=== PATIENT | female | born 1930 | race Hispanic/Latino ===

== ENCOUNTER 2021-06-17 18:20 | Inpatient (IN) | payer MEDICARE ==
[~2021-06-17] VITALS: Ht 152.4 cm; Wt 50.6 kg
[~2021-06-17 18:20] MED LIST: AMLO-73 PO; ATEN50TA PO; ESOM40CA PO; FERR-82 PO; FURO20TA4 PO; LINA5TAB PO; SIMV40TA59 PO; TRAM50TA4 PO
[2021-06-17 19:22] LABS: BASOPHILS % (AUTO) 0.2 % (0.0-5.0); EOSINOPHILS % (AUTO) 1.6 % (0.0-8.0); HEMATOCRIT 26.5 % (36-48); MEAN CORPUSCULAR HEMOGLOBIN 32.4 pg (27.0-33.0); MEAN CORPUSCULAR HGB CONC 33.6 g/dL (32.0-36.0); MEAN CORPUSCULAR VOLUME 96.4 fL (79-99); MONOCYTES % (AUTO) 2.5 % (3.0-13.0); NEUTROPHILS % (AUTO) 92.2 % (40.0-77.0); PLATELET COUNT (AUTO) 165 K/uL (130-400); RED BLOOD CELL COUNT(AUTO) 2.75 MIL/uL (4.00-5.50); RED CELL DISTRIBUTION WIDTH 13.2 % (11.0-15.5); WHITE BLOOD COUNT (AUTO) 13.8 K/uL (4.8-10.8)
[2021-06-17] MEDS ORDERED: 0.9%NACL 1000ML 1,000 ML IV ONE ×2 (19:30→20:21)
[2021-06-17] MEDS ORDERED: ACETAMINOPHEN 500 MG TABLET PO ONE (19:30)
[2021-06-17 19:41] LABS: ALANINE AMINOTRANSFERASE 29 U/L (12-78); ASPARTATE AMINOTRANSFERASE 33 U/L (10-37); BILIRUBIN,TOTAL 0.3 mg/dL (0.2-1.0); CARBON DIOXIDE 20 mmol/L (21-32); CHLORIDE 104 mmol/L (101-111); CREATININE 2.4 mg/dL (0.5-1.5); GLOMERULAR FILTR. RATE CALC 20 mL/min (>60); GLUCOSE,RANDOM 178 mg/dL (70-105); POTASSIUM 5.9 mmol/L (3.5-5.1); SODIUM SERUM 137 mmol/L (136-145); TOTAL PROTEIN, SERUM 7.1 g/dL (6.0-8.3)
[2021-06-17 19:44] LABS: CRP QUANTITATIVE < 2.00 mg/L (0.00-9.0)
[2021-06-17 19:45] LABS: UREA NITROGEN, BLOOD 86 mg/dL (7-18)
[2021-06-17 19:46] LABS: B-TYPE NATRIURETIC PEPTIDE 730 pg/mL (0-100)
[2021-06-17] MEDS ORDERED: ZOSYN 3.375GM+NS 50ML 50 ML ONE (20:48)
[2021-06-17] MEDS ORDERED: ZOSYN 3.375GM +NS 50ML IV SCH (21:00)
[2021-06-17] MEDS ORDERED: ZOSYN 3.375GM+NS 50ML 3.38 GM in 0.9%NACL 50ML 50 ML IV SCH (21:00)
[2021-06-17 21:26] LABS: APPEARANCE,URINE Clear (CLEAR); BILIRUBIN,URINE Negative (NEGATIVE); COLOR,URINE Yellow (YELLOW); GLUCOSE, URINE (UA) Negative (NEGATIVE); KETONES,URINE Negative (NEGATIVE); LEUKOCYTE ESTERASE ,URINE Negative (NEGATIVE); NITRATE,URINE Negative (NEGATIVE); OCCULT BLOOD,URINE Negative (NEGATIVE); PROTEIN,URINE POS 2+ mg/dL (NEGATIVE); UROBILINOGEN,URINE 0.2 mg/dL (0.2-1.0)
[2021-06-17 21:39] LABS: BACTERIA,URINE None Seen /HPF (None Seen); MUCUS,URINE Few LPF (None Seen); RBC,URINE 0-1 /HPF (0-1); SQUAMOUS EPITHELIAL CELL,UR 0-2 /HPF (0-2); WBC,URINE 0-1 /HPF (0-1)
[2021-06-17] MEDS ORDERED: HYDRALAZINE 20MG/ML VIAL IV PRN (22:00)
[2021-06-17] MEDS ORDERED: MORPHINE 4 MG SYG IV PRN (22:00)
[2021-06-17] MEDS ORDERED: ONDANSETRON 4MG INJ IV PRN (22:00)
[2021-06-17] MEDS: ZOSYN 3.375GM+NS 50ML 50 ML IV SCH (22:00)
[2021-06-17] MEDS ORDERED: ACETAMINOPHEN 325 MG TAB PO PRN (22:00)
[2021-06-17] MEDS ORDERED: LACTATED RINGERS IV ONE (22:00)
[2021-06-17] MEDS: LACTATED RINGERS 1000ML 1,000 ML IV SCH (23:01)
[2021-06-18 01:02] LABS: BASOPHILS % (AUTO) 0.1 % (0.0-5.0); LYMPHOCYTES % (AUTO) 1.9 % (21.0-51.0); MEAN CORPUSCULAR HEMOGLOBIN 32.8 pg (27.0-33.0); MEAN CORPUSCULAR HGB CONC 33.5 g/dL (32.0-36.0); MEAN CORPUSCULAR VOLUME 97.9 fL (79-99); MONOCYTES % (AUTO) 7.8 % (3.0-13.0); NEUTROPHILS % (AUTO) 89.4 % (40.0-77.0); PLATELET COUNT (AUTO) 145 K/uL (130-400); RED BLOOD CELL COUNT(AUTO) 2.35 MIL/uL (4.00-5.50); RED CELL DISTRIBUTION WIDTH 13.2 % (11.0-15.5); WHITE BLOOD COUNT (AUTO) 15.7 K/uL (4.8-10.8)
[2021-06-18] MEDS: INSULIN HUMULIN R 100 UNIT/ML 3ML SQ SCH ×4 (07:30→21:00)
[2021-06-18 07:37] LABS: HEMOGLOBIN A1C 5.4 % (4.0-6.0); INR 1.07 (0.85-1.15); PROTHROMBIN TIME 11.6 SEC (9.6-11.6)
[2021-06-18 07:39] LABS: PARTIAL THROMBOPLASTIN TIME 32.1 SEC (26.3-35.5)
[2021-06-18 07:40] LABS: CREATININE 2.3 mg/dL (0.5-1.5); MAGNESIUM 2.6 mg/dL (1.80-2.40); PHOSPHORUS 4.1 mg/dL (2.5-4.9); POTASSIUM 5.3 mmol/L (3.5-5.1)
[2021-06-18] MEDS: ZOSYN 3.375GM+NS 50ML 50 ML IV SCH ×2 (10:00→21:28)
[2021-06-18] MEDS: HEPARIN 5,000 UNIT VIAL SQ SCH ×3 (10:01→21:36)
[2021-06-18] MEDS: ASPIRIN 81 MG EC TAB PO SCH (10:01)
[2021-06-18] MEDS: FAMOTIDINE 20MG VIAL IV SCH (10:01)
[2021-06-18] MEDS: LACTATED RINGERS 1000ML 1,000 ML IV SCH (17:29)
[2021-06-18] MEDS ORDERED: CALC-190 PO (19:25)
[2021-06-18] MEDS ORDERED: AEC81 PO (19:25)
[2021-06-18 20:00] VITALS: BP 172/61
[2021-06-18] MEDS: AMLODIPINE-BENAZEPRIL 5-10 MG PO SCH (23:36)
[2021-06-18] MEDS: ACETAMINOPHEN WITH CODEINE 1 TAB TAB PO PRN (23:57)
[2021-06-19] VITALS: BP 143/53
[2021-06-19 04:00] VITALS: BP 139/55
[2021-06-19] MEDS: INSULIN HUMULIN R 100 UNIT/ML 3ML SQ SCH ×4 (07:30→21:41)
[2021-06-19 07:55] VITALS: BP 163/61
[2021-06-19] MEDS ORDERED: AMLODIPINE-BENAZEPRIL 5-10 MG PO SCH (09:00)
[2021-06-19] MEDS: AMLODIPINE-BENAZEPRIL 5-10 MG PO SCH (09:00)
[2021-06-19] MEDS: FAMOTIDINE 20MG VIAL IV SCH (09:00)
[2021-06-19] MEDS: ZOSYN 3.375GM+NS 50ML 50 ML IV SCH (09:00)
[2021-06-19] MEDS: ASPIRIN 81 MG EC TAB PO SCH (09:00)
[2021-06-19] MEDS: HEPARIN 5,000 UNIT VIAL SQ SCH ×3 (09:13→21:40)
[2021-06-19 11:34] VITALS: BP 155/56
[2021-06-19] MEDS: MEROPENEM 500 MG VIAL IVP SCH ×2 (13:14→21:32)
[2021-06-19] MEDS: LACTATED RINGERS 1000ML 1,000 ML IV SCH (14:00)
[2021-06-19 15:46] VITALS: BP 166/55
[2021-06-19] MEDS: ACETAMINOPHEN WITH CODEINE 1 TAB TAB PO PRN (16:32)
[2021-06-19] MEDS: PNEUMOCOCCAL VACCINE POLYVALENT 0.5 ML/VIAL [PPV] IM SCH (17:35)
[2021-06-19 19:00] VITALS: BP 165/65
[2021-06-19 19:19] LABS: BASOPHILS % (AUTO) 0.2 % (0.0-5.0); HEMATOCRIT 24.1 % (36-48); LYMPHOCYTES % (AUTO) 2.9 % (21.0-51.0); MONOCYTES % (AUTO) 3.1 % (3.0-13.0); NEUTROPHILS % (AUTO) 93.3 % (40.0-77.0); PLATELET COUNT (AUTO) 143 K/uL (130-400); RED BLOOD CELL COUNT(AUTO) 2.41 MIL/uL (4.00-5.50); RED CELL DISTRIBUTION WIDTH 13.7 % (11.0-15.5); WHITE BLOOD COUNT (AUTO) 14.9 K/uL (4.8-10.8)
[2021-06-19] MEDS ORDERED: EPOETIN ALFA-EPBX (NON-ESRD) 10,000 UNIT/ML VIAL SQ SCH (19:30)
[2021-06-19] MEDS ORDERED: IRON SUCROSE COMPLEX 300 MG in 0.9%NACL 50ML 50 ML IV SCH (19:30)
[2021-06-19] MEDS ORDERED: COMPOUND IV MISC 1 EACH IVSOLN MISC PRN (19:30)
[2021-06-19 20:05] LABS: ALBUMIN 2.9 g/dL (3.5-5.0); BILIRUBIN,TOTAL 0.4 mg/dL (0.2-1.0); CREATININE 2.7 mg/dL (0.5-1.5); CRP QUANTITATIVE 83.7 mg/L (0.00-9.0); POTASSIUM 5.7 mmol/L (3.5-5.1); THYROID STIMULATING HORMONE 1.22 uIU/mL (0.36-3.74); TOTAL PROTEIN, SERUM 6.3 g/dL (6.0-8.3)
[2021-06-19 20:15] LABS: % IRON SATURATION 8.7 % (22-44)
[2021-06-20] VITALS: BP 135/57
[2021-06-20 03:28] VITALS: BP 160/57
[2021-06-20 05:21] LABS: BASOPHILS % (AUTO) 0.2 % (0.0-5.0); EOSINOPHILS % (AUTO) 0.1 % (0.0-8.0); HEMATOCRIT 22.8 % (36-48); LYMPHOCYTES % (AUTO) 6.9 % (21.0-51.0); MEAN CORPUSCULAR HEMOGLOBIN 32.1 pg (27.0-33.0); MEAN CORPUSCULAR HGB CONC 33.3 g/dL (32.0-36.0); MEAN CORPUSCULAR VOLUME 96.2 fL (79-99); MONOCYTES % (AUTO) 4.1 % (3.0-13.0); PLATELET COUNT (AUTO) 145 K/uL (130-400); RED BLOOD CELL COUNT(AUTO) 2.37 MIL/uL (4.00-5.50); RED CELL DISTRIBUTION WIDTH 13.9 % (11.0-15.5); WHITE BLOOD COUNT (AUTO) 12.5 K/uL (4.8-10.8)
[2021-06-20 05:38] LABS: ALBUMIN 2.7 g/dL (3.5-5.0); BILIRUBIN,TOTAL 0.3 mg/dL (0.2-1.0); CREATININE 2.7 mg/dL (0.5-1.5); CRP QUANTITATIVE 72.6 mg/L (0.00-9.0); PHOSPHORUS 4.5 mg/dL (2.5-4.9); POTASSIUM 5.6 mmol/L (3.5-5.1); TOTAL PROTEIN, SERUM 5.7 g/dL (6.0-8.3)
[2021-06-20] MEDS: INSULIN HUMULIN R 100 UNIT/ML 3ML SQ SCH ×4 (07:30→21:00)
[2021-06-20 08:00] VITALS: BP 164/62
[2021-06-20] MEDS: AMLODIPINE-BENAZEPRIL 5-10 MG PO SCH (08:42)
[2021-06-20] MEDS: ASPIRIN 81 MG EC TAB PO SCH (08:42)
[2021-06-20] MEDS: FAMOTIDINE 20MG VIAL IV SCH (08:42)
[2021-06-20] MEDS: HEPARIN 5,000 UNIT VIAL SQ SCH (08:43)
[2021-06-20] MEDS: PNEUMOCOCCAL VACCINE POLYVALENT 0.5 ML/VIAL [PPV] IM SCH (08:44)
[2021-06-20] MEDS: MEROPENEM 500 MG VIAL IVP SCH ×2 (11:46→21:22)
[2021-06-20 11:51] VITALS: BP 163/61
[2021-06-20] MEDS ORDERED: 0.9%NACL 1000ML 1,000 ML IV SCH (12:00)
[2021-06-20] MEDS ORDERED: EPOETIN ALFA-EPBX (NON-ESRD) 10,000 UNIT/ML VIAL SQ SCH (12:00)
[2021-06-20] MEDS ORDERED: IRON SUCROSE COMPLEX 300 MG in 0.9%NACL 50ML 50 ML IV SCH (12:00)
[2021-06-20] MEDS ORDERED: FUROSEMIDE 40MG VIAL IV ONE ×2 (13:30→22:30)
[2021-06-20 16:00] VITALS: BP 160/60
[2021-06-20] MEDS: HYDRALAZINE 25MG TABLET PO SCH ×2 (16:29→21:22)
[2021-06-20] MEDS ORDERED: NA ZIRCON CYCLOSIL(LOKELMA 10GM) PO ONE (17:30)
[2021-06-20 19:00] VITALS: BP 160/75
[2021-06-20] MEDS: AMLODIPINE 5 MG TAB PO SCH (21:22)
[2021-06-20] MEDS: METOPROLOL TARTRATE 25 MG TAB PO SCH (21:22)
[2021-06-21] VITALS: BP 166/77
[2021-06-21] MEDS: ACETAMINOPHEN WITH CODEINE 1 TAB TAB PO PRN (00:05)
[2021-06-21 00:37] LABS: ABG BASE EXCESS -4.9 mmol/L (-2.0-3.0); ABG HCO3 18.2 mmol/L (21.0-28.0); ABG OXYGEN SATURATION 83.9 % (95.0-99.0); ABG PCO2 29 mmHg (32-45)
[2021-06-21 04:00] VITALS: BP 156/67
[2021-06-21 04:34] LABS: HEMATOCRIT 23.7 % (36-48); MEAN CORPUSCULAR HEMOGLOBIN 31.1 pg (27.0-33.0); MEAN CORPUSCULAR HGB CONC 32.1 g/dL (32.0-36.0); MEAN CORPUSCULAR VOLUME 97.1 fL (79-99); RED BLOOD CELL COUNT(AUTO) 2.44 MIL/uL (4.00-5.50); RED CELL DISTRIBUTION WIDTH 13.8 % (11.0-15.5); WHITE BLOOD COUNT (AUTO) 15.8 K/uL (4.8-10.8)
[2021-06-21 04:55] LABS: ALBUMIN 2.8 g/dL (3.5-5.0); CREATININE 3.3 mg/dL (0.5-1.5); PHOSPHORUS 5.7 mg/dL (2.5-4.9); POTASSIUM 5.6 mmol/L (3.5-5.1)
[2021-06-21] MEDS: INSULIN HUMULIN R 100 UNIT/ML 3ML SQ SCH ×4 (06:00→22:05)
[2021-06-21 06:34] LABS: ABG HCO3 19.3 mmol/L (21.0-28.0); ABG OXYGEN SATURATION 98.5 % (95.0-99.0); ABG PCO2 31 mmHg (32-45)
[2021-06-21 07:00] VITALS: BP 162/71
[2021-06-21] MEDS ORDERED: EPOETIN ALFA-EPBX (NON-ESRD) 10,000 UNIT/ML VIAL SQ SCH (09:00)
[2021-06-21] MEDS: AMLODIPINE 5 MG TAB PO SCH ×2 (09:19→21:22)
[2021-06-21] MEDS: ASPIRIN 81 MG EC TAB PO SCH (09:19)
[2021-06-21] MEDS: MEROPENEM 500 MG VIAL IVP SCH ×2 (09:19→21:22)
[2021-06-21] MEDS: HYDRALAZINE 25MG TABLET PO SCH ×3 (09:19→21:22)
[2021-06-21] MEDS: METOPROLOL TARTRATE 25 MG TAB PO SCH ×2 (09:19→21:22)
[2021-06-21] MEDS: FAMOTIDINE 20MG VIAL IV SCH (09:19)
[2021-06-21] MEDS: PNEUMOCOCCAL VACCINE POLYVALENT 0.5 ML/VIAL [PPV] IM SCH (10:00)
[2021-06-21 11:00] VITALS: BP 148/55
[2021-06-21] MEDS ORDERED: FUROSEMIDE 40MG VIAL IV SCH (11:00)
[2021-06-21] MEDS ORDERED: BUMETANIDE 2.5MG/10ML VIAL 40 ML IV SCH (11:00)
[2021-06-21 15:00] VITALS: BP 145/60
[2021-06-21 21:45] VITALS: BP 150/65
[2021-06-22] VITALS (7 sets, daily range): BP systolic 140–150; BP diastolic 52–92
[2021-06-22] MEDS: INSULIN HUMULIN R 100 UNIT/ML 3ML SQ SCH ×3 (06:52→15:57)
[2021-06-22] MEDS: AMLODIPINE 5 MG TAB PO SCH (09:30)
[2021-06-22] MEDS: FAMOTIDINE 20MG VIAL IV SCH (09:30)
[2021-06-22] MEDS: MEROPENEM 500 MG VIAL IVP SCH (09:30)
[2021-06-22] MEDS: HYDRALAZINE 25MG TABLET PO SCH ×2 (09:31→14:26)
[2021-06-22] MEDS: METOPROLOL TARTRATE 25 MG TAB PO SCH (09:32)
[2021-06-22] MEDS: ASPIRIN 81 MG EC TAB PO SCH (09:32)
[2021-06-22] MEDS: ACETAMINOPHEN WITH CODEINE 1 TAB TAB PO PRN (12:04)
[2021-06-22 15:30] LABS: BASOPHILS % (AUTO) 0.3 % (0.0-5.0); EOSINOPHILS % (AUTO) 0.3 % (0.0-8.0); HEMATOCRIT 26.6 % (36-48); LYMPHOCYTES % (AUTO) 8.5 % (21.0-51.0); MEAN CORPUSCULAR HEMOGLOBIN 31.6 pg (27.0-33.0); MEAN CORPUSCULAR HGB CONC 31.6 g/dL (32.0-36.0); MONOCYTES % (AUTO) 7.7 % (3.0-13.0); NEUTROPHILS % (AUTO) 80.7 % (40.0-77.0); NUCLEATED RED BLOOD CELLS 0.3 % (0.0-0.19); PLATELET COUNT (AUTO) 184 K/uL (130-400); RED BLOOD CELL COUNT(AUTO) 2.66 MIL/uL (4.00-5.50); RED CELL DISTRIBUTION WIDTH 13.9 % (11.0-15.5); WHITE BLOOD COUNT (AUTO) 14.3 K/uL (4.8-10.8)
[2021-06-22 15:39] LABS: CREATININE 3.6 mg/dL (0.5-1.5); POTASSIUM 5.2 mmol/L (3.5-5.1)
[2021-06-22 15:52] LABS: B-TYPE NATRIURETIC PEPTIDE 1910 pg/mL (0-100); CRP QUANTITATIVE 100.5 mg/L (0.00-9.0); MAGNESIUM 2.2 mg/dL (1.80-2.40); PHOSPHORUS 6.7 mg/dL (2.5-4.9)
== END 2021-06-22 20:02 | DRG 871 ==
LOC: EDH 18:20 → EDHIP 21:32 → 4DH 06-18 16:47
PROVIDERS: ADMIT Internal Medicine; ATTEND Internal Medicine
PROC: 5A09357 Assistance with Respiratory Ventilation, Less than 24 Consecutive Hours, Continuous Positive Airway Pressure (ICD-10-PCS; principal; 2021-06-21)
DX: A41.52 Sepsis due to Pseudomonas (principal); N17.0 Acute kidney failure with tubular necrosis; I50.31 Acute diastolic (congestive) heart failure; I42.9 Cardiomyopathy, unspecified; N18.4 Chronic kidney disease, stage 4 (severe); I13.0 Hypertensive heart and chronic kidney disease with heart failure and stage 1 through stage 4 chronic kidney disease, or unspecified chronic kidney disease; M19.90 Unspecified osteoarthritis, unspecified site; E78.00 Pure hypercholesterolemia, unspecified; I25.10 Atherosclerotic heart disease of native coronary artery without angina pectoris; E78.5 Hyperlipidemia, unspecified; E87.5 Hyperkalemia; Z20.822 Contact with and (suspected) exposure to COVID-19; L89.151 Pressure ulcer of sacral region, stage 1; E11.22 Type 2 diabetes mellitus with diabetic chronic kidney disease; I27.20 Pulmonary hypertension, unspecified; E87.8 Other disorders of electrolyte and fluid balance, not elsewhere classified; D50.9 Iron deficiency anemia, unspecified; D63.1 Anemia in chronic kidney disease; I08.0 Rheumatic disorders of both mitral and aortic valves; I25.2 Old myocardial infarction; Z90.710 Acquired absence of both cervix and uterus; Z83.3 Family history of diabetes mellitus; Z82.49 Family history of ischemic heart disease and other diseases of the circulatory system; R06.03 Acute respiratory distress; B99.9 Unspecified infectious disease
CPT/HCPCS: 36415; 36600; 71045; 73502; 73552; 73600; 73620; 80048; 80053; 80069; 81001; 82550; 82607; 82728; 82746; 82803; 82948; 83036; 83540; 83550; 83605; 83735; 83874; 83880; 84100; 84145; 84443; 84484; 85025; 85027; 85045; 85610; 85730; 86140; 86850; 86900; 86901; 87040; 87077; 87186; 87635; 90732; 93005; 93306; 93356; 93971; 94660; 97039; C9803; G0378; J0360; J1644; J1756; J1815; J1940; J2185; J2543; J3490; J7030; J7120